=== PATIENT | female | born 1940 | race Caucasian/White ===

== ENCOUNTER 2019-09-29 12:36 | Outpatient (REF) | payer MEDICARE, OTHER, SELFPAY ==
[2019-09-29 19:37] LABS: HCT 42.3 % (36.0-46.0); HGB 13.9 g/dL (12.0-15.5); Mean Corp. HGB Concentration 32.9 g/dL (32.0-36.0); Mean Corpuscular Hemoglobin 31.4 pg (27.0-33.0); Mean Corpuscular Volume 95.7 fL (80-95); Mean Platelet Volume 10.2 fL (8.0-11.0); Platelet Count 312 x1000/uL (130-400); RBC 4.42 m/cumm (4.00-5.20)
[2019-09-29 20:08] LABS: ALT 19 U/L (14-59); Albumin 3.7 g/dL (3.4-5.0); Anion Gap 8.8 mmol/L (3-11); BUN 15 mg/dL (7-18); CO2 30.2 mmol/L (21.0-32.0); CREATININE 0.71 mg/dL (0.55-1.02); Calcium 9.2 mg/dL (8.5-10.1); Calculated LDL 81 mg/dL (<100); Chloride 106 mmol/L (98-107); Cholesterol 153 mg/dL (<200); Glucose 106 mg/dL (74-106); HDL Cholesterol 52 mg/dL (40-60); Potassium 3.7 mmol/L (3.5-5.1); Sodium 145 mmol/L (136-145); TSH 2.83 uIU/mL (0.36-3.74); Triglyceride 102 mg/dL (<150)
[2019-09-29 20:33] LABS: Creatine Kinase 45 U/L (26-192); PHOSPHORUS 3.2 mg/dL (2.6-4.7)
== END 2019-09-29 12:56 ==
LOC: NCHCN 12:36
PROVIDERS: PCP Internal Medicine; Visit Provider Internal Medicine
DX: I10 Essential (primary) hypertension (principal); M19.049 Primary osteoarthritis, unspecified hand; I25.2 Old myocardial infarction; Z13.1 Encounter for screening for diabetes mellitus
CPT/HCPCS: 80053; 80061; 80069; 82550; 85027; 85652; 87389; 83036; 84443; 84460; 85025; 86140

== ENCOUNTER 2021-02-11 17:16 | Outpatient (REF) | payer MEDICARE, OTHER, SELFPAY ==
[2021-02-11 20:52] LABS: HGB 13.2 g/dL (11.2-15.7); MCH 31.1 pg (27.0-33.0); MCHC 32.2 % (32.0-36.0); MCV 96.5 fL (80-95); MPV 9.9 fL (8.0-11.0); Platelet Count 310 10^3/uL (130-400); RBC 4.25 10^6/uL (3.93-5.22); RDW 13.2 % (11.7-14.6); RDW-SD 47.6 fL; WBC 10.64 10^3/uL (4.4-10.8)
[2021-02-11 21:40] LABS: Vitamin B12 283 pg/mL (193-986)
== END 2021-02-11 17:17 | disposition home or self-care (01) ==
LOC: NCHCN 17:16
PROVIDERS: PCP Internal Medicine; Visit Provider Internal Medicine
DX: I48.0 Paroxysmal atrial fibrillation (principal); G56.03 Carpal tunnel syndrome, bilateral upper limbs; M54.5 Low back pain; I87.2 Venous insufficiency (chronic) (peripheral)
CPT/HCPCS: 85027; 82607

== ENCOUNTER 2021-10-11 18:37 | Outpatient (REF) | payer MEDICARE, OTHER, SELFPAY ==
[2021-10-11 18:54] LABS: HCT 41.2 % (36.0-46.0); HGB 13.4 g/dL (11.2-15.7); MCH 30.7 pg (27.0-33.0); MCHC 32.5 % (32.0-36.0); MCV 94.5 fL (80-95); MPV 9.9 fL (8.0-11.0); Platelet Count 328 10^3/uL (130-400); RBC 4.36 10^6/uL (3.93-5.22); RDW 13.1 % (11.7-14.6); RDW-SD 45.8 fL; WBC 10.48 10^3/uL (4.4-10.8)
[2021-10-11 19:11] LABS: ALT 16 U/L (14-59); AST 15 U/L (15-37); Albumin 3.8 g/dL (3.4-5.0); Alkaline Phosphatase 99 U/L (46-116); Anion Gap 8.2 mmol/L (3-11); BUN 20 mg/dL (7-18); Bilirubin, Total 0.9 mg/dL (0.2-1.0); CO2 31.8 mmol/L (21.0-32.0); Calcium 9.4 mg/dL (8.5-10.1); Chloride 104 mmol/L (98-107); Estimated GFR 53.21 (mL/min/1.73m2); Glucose 82 mg/dL (74-106); Potassium 3.6 mmol/L (3.5-5.1); Sodium 144 mmol/L (136-145); Total Protein 7.4 g/dL (6.4-8.2)
[2021-10-16 10:30] LABS: Methylmalonic Acid 0.34 nmol/mL (<=0.40)
== END 2021-10-11 18:38 | disposition home or self-care (01) ==
LOC: NCHCN 18:37
PROVIDERS: PCP Internal Medicine; Visit Provider Internal Medicine
DX: I10 Essential (primary) hypertension (principal); G56.03 Carpal tunnel syndrome, bilateral upper limbs
CPT/HCPCS: 80053; 80186; 85027

== ENCOUNTER 2022-11-07 17:27 | Outpatient (REF) | payer MEDICARE, OTHER, SELFPAY ==
[2022-11-07 19:07] LABS: HCT 41.3 % (36.0-46.0); HGB 13.9 g/dL (11.2-15.7); MCH 32.1 pg (27.0-33.0); MCHC 33.7 % (32.0-36.0); MCV 95 fL (80-95); MPV 9.6 fL (8.0-11.0); Platelet Count 303 10^3/uL (130-400); RBC 4.33 10^6/uL (3.93-5.22); RDW 13.5 % (11.7-14.6); RDW-SD 47.6 fL; WBC 8.89 10^3/uL (4.4-10.8)
[2022-11-07 19:35] LABS: ALT 22 U/L (14-59); AST 21 U/L (15-37); Albumin 3.7 g/dL (3.4-5.0); Alkaline Phosphatase 94 U/L (46-116); Anion Gap 6.5 mmol/L (3-11); BUN 18 mg/dL (7-18); Bilirubin, Total 0.6 mg/dL (0.2-1.0); CO2 33.5 mmol/L (21.0-32.0); CREATININE 0.9 mg/dL (0.55-1.02); Calcium 9.4 mg/dL (8.5-10.1); Calculated LDL 92 mg/dL (<100); Chloride 105 mmol/L (98-107); Cholesterol 170 mg/dL (<200); Estimated GFR 63.83 (mL/min/1.73m2); Glucose 104 mg/dL (74-106); HDL Cholesterol 57 mg/dL (40-60); Potassium 3.8 mmol/L (3.5-5.1); Sodium 145 mmol/L (136-145); TSH 2.31 uIU/mL (0.36-3.74); Total Protein 7.7 g/dL (6.4-8.2); Triglyceride 108 mg/dL (<150); Vitamin B12 260 pg/mL (193-986)
== END 2022-11-07 17:28 | disposition home or self-care (01) ==
LOC: NCHCN 17:27
PROVIDERS: PCP Internal Medicine; Visit Provider Internal Medicine
DX: I10 Essential (primary) hypertension (principal); I35.0 Nonrheumatic aortic (valve) stenosis; I27.21 Secondary pulmonary arterial hypertension; G31.84 Mild cognitive impairment of uncertain or unknown etiology
CPT/HCPCS: 80053; 80061; 85027; 82607; 84443

== ENCOUNTER 2023-01-16 15:30 | Outpatient (REF) | payer MEDICARE, OTHER, SELFPAY ==
[2023-01-16 19:07] LABS: Uric Acid 7.6 mg/dL (2.6-6.0)
== END 2023-01-16 15:31 | disposition home or self-care (01) ==
LOC: NCHCN 15:30
PROVIDERS: PCP Internal Medicine; Visit Provider Internal Medicine
DX: M10.9 Gout, unspecified (principal)
CPT/HCPCS: 84550; 86140

== ENCOUNTER 2024-01-13 14:46 | Outpatient (REF) | payer MEDICARE, OTHER, SELFPAY ==
[2024-01-13 21:48] LABS: HCT 44.9 % (36.0-46.0); HGB 14.7 g/dL (11.2-15.7); MCH 32.4 pg (27.0-33.0); MCHC 32.7 % (32.0-36.0); MCV 99 fL (80-95); MPV 9.4 fL (8.0-11.0); Platelet Count 299 10^3/uL (130-400); RBC 4.54 10^6/uL (3.93-5.22); RDW 13.2 % (11.7-14.6); RDW-SD 48.1 fL; WBC 10.45 10^3/uL (4.4-10.8)
[2024-01-13 22:12] LABS: ALT 17 U/L (14-59); AST 18 U/L (15-37); Albumin 3.6 g/dL (3.4-5.0); Alkaline Phosphatase 81 U/L (46-116); Anion Gap 3.9 mmol/L (3-11); BUN 15 mg/dL (7-18); Bilirubin, Total 0.8 mg/dL (0.2-1.0); CO2 31.1 mmol/L (21.0-32.0); CREATININE 0.9 mg/dL (0.55-1.02); Calcium 9.7 mg/dL (8.5-10.1); Calculated LDL 122 mg/dL (<100); Chloride 104 mmol/L (98-107); Cholesterol 207 mg/dL (<200); Estimated GFR 63.43 (mL/min/1.73m2); Glucose 121 mg/dL (74-106); HDL Cholesterol 53 mg/dL (40-60); Potassium 4.1 mmol/L (3.5-5.1); Sodium 139 mmol/L (136-145); Total Protein 7.4 g/dL (6.4-8.2); Triglyceride 163 mg/dL (<150)
== END 2024-01-13 14:47 | disposition home or self-care (01) ==
LOC: NCHCN 14:46
PROVIDERS: PCP Internal Medicine; Visit Provider Internal Medicine
DX: I10 Essential (primary) hypertension (principal); I48.0 Paroxysmal atrial fibrillation
CPT/HCPCS: 80053; 80061; 85027

== ENCOUNTER 2024-10-13 18:34 | Outpatient (REF) | payer MEDICARE, OTHER, SELFPAY ==
[2024-10-13 19:41] LABS: HCT 41.3 % (36.0-46.0); HGB 13.5 g/dL (11.2-15.7); MCH 32.7 pg (27.0-33.0); MCHC 32.7 % (32.0-36.0); MCV 100 fL (80-95); MPV 10.4 fL (8.0-11.0); Platelet Count 176 10^3/uL (130-400); RBC 4.13 10^6/uL (3.93-5.22); RDW 14.4 % (11.7-14.6); RDW-SD 53.1 fL; WBC 7.76 10^3/uL (4.4-10.8)
[2024-10-13 19:59] LABS: ALT 74 U/L (14-59); AST 68 U/L (15-37); Albumin 3.4 g/dL (3.4-5.0); Alkaline Phosphatase 155 U/L (46-116); Anion Gap 7.3 mmol/L (3-11); BUN 14 mg/dL (7-18); CO2 29.7 mmol/L (21.0-32.0); CREATININE 0.7 mg/dL (0.55-1.02); Calcium 9.5 mg/dL (8.5-10.1); Calculated LDL 48 mg/dL (<100); Chloride 110 mmol/L (98-107); Cholesterol 122 mg/dL (<200); Estimated GFR 85.23 (mL/min/1.73m2); Glucose 98 mg/dL (74-106); HDL Cholesterol 57 mg/dL (>or=50); Potassium 4.4 mmol/L (3.5-5.1); Sodium 147 mmol/L (136-145); Total Protein 6.9 g/dL (6.4-8.2); Triglyceride 88 mg/dL (<150)
[2024-10-13 20:29] LABS: Creatine Kinase 38 U/L (26-192)
== END 2024-10-13 18:35 | disposition home or self-care (01) ==
LOC: NCHCN 18:34
PROVIDERS: PCP Internal Medicine; Visit Provider Internal Medicine
DX: I10 Essential (primary) hypertension (principal)
CPT/HCPCS: 80053; 80061; 82550; 85027